=== PATIENT | male | born 1950 | race Caucasian/White ===

== ENCOUNTER → 2016-11-23 | Outpatient (REF) | payer MEDICARE, OTHER ==
[~2016-11-23] MED LIST: ASPI-345 PO; CITA40TA5; FURO-125; GABA1TAB PO; HYDR1CAP2; INSASP1U; INSU100I30; MULT-954 PO; TEST2.5G5; [UNRECOGNIZED DRUG - OTHER]
== END ==
LOC: LAB 11:50
PROVIDERS: ATTEND Internal Medicine
DX: Z51.81 Encounter for therapeutic drug level monitoring (principal); Z79.01 Long term (current) use of anticoagulants
CPT/HCPCS: 85610

== ENCOUNTER → 2016-12-12 | Outpatient (REF) | payer MEDICARE, OTHER | LOC: LAB 10:57 | PROVIDERS: ATTEND Internal Medicine | DX: Z51.81 Encounter for therapeutic drug level monitoring (principal); Z79.01 Long term (current) use of anticoagulants | CPT/HCPCS: 85610 ==

== ENCOUNTER → 2017-01-10 | Outpatient (REF) | payer MEDICARE, OTHER | LOC: LAB 08:24 | PROVIDERS: ATTEND Internal Medicine | DX: Z51.81 Encounter for therapeutic drug level monitoring (principal); Z79.01 Long term (current) use of anticoagulants | CPT/HCPCS: 85610 ==

== ENCOUNTER → 2017-02-10 | Outpatient (REF) | payer MEDICARE, OTHER | LOC: LAB 09:06 | PROVIDERS: ATTEND Internal Medicine | DX: Z51.81 Encounter for therapeutic drug level monitoring (principal); Z79.01 Long term (current) use of anticoagulants | CPT/HCPCS: 85610 ==

== ENCOUNTER → 2017-03-15 | Outpatient (REF) | payer MEDICARE, OTHER | LOC: LAB 09:45 | PROVIDERS: ATTEND Internal Medicine | DX: Z51.81 Encounter for therapeutic drug level monitoring (principal); Z79.01 Long term (current) use of anticoagulants | CPT/HCPCS: 85610 ==

== ENCOUNTER → 2017-03-20 | Outpatient (REF) | payer MEDICARE, OTHER | LOC: LAB 09:00 | PROVIDERS: ATTEND Internal Medicine | DX: Z51.81 Encounter for therapeutic drug level monitoring (principal); Z79.01 Long term (current) use of anticoagulants | CPT/HCPCS: 85610 ==